=== PATIENT | male | born 1950 | race Caucasian/White ===

== ENCOUNTER 2020-03-01 20:21 | Inpatient (IN) | payer MEDICARE, OTHER ==
[~2020-03-01] VITALS: Ht 185.4 cm; Wt 102.0 kg
[2020-03-01] MEDS ORDERED: MORPHINE SULFATE 4 MG/ML SYR/VIAL IV ONE (20:30)
[2020-03-01] MEDS ORDERED: ONDANSETRON HCL 4 MG/2 ML VIAL IV ONE (20:30)
[2020-03-01] MEDS ORDERED: MORPHINE SULF INJ 2 MG/ML SYRINGE 1ML IV PRN (22:15)
[2020-03-01] MEDS ORDERED: DOCUSATE SOD 100 MG CAP PO PRN (22:15)
[2020-03-01] MEDS ORDERED: ONDANSETRON HCL 4 MG/2 ML VIAL IV PRN (22:15)
[2020-03-01] MEDS ORDERED: DEXTROSE (50%) 50ML SYRG IV PRN (22:15)
[2020-03-01] MEDS ORDERED: NITROGLYCERIN 0.4 MG SL TAB SL PRN (22:15)
[2020-03-01 23:07] LABS: Basophils # (auto) 0 10 ^3/uL (0-0.2); Basophils % (auto) 0.7 % (0.0-2.0); Eosinophils # (auto) 0.1 10 ^3/uL (0-0.8); Hemoglobin 13.4 g/dL (13.5-17.5); Lymphocytes # (auto) 1.1 10 ^3/uL (0.4-5.4); Lymphocytes % (auto) 16.3 % (10.0-50.0); Mean Corpuscular Hemoglobin 30.9 pg (28.0-32.0); Mean Corpuscular Hgb Conc. 33.4 g/dL (32.0-36.0); Mean Corpuscular Volume 92.5 fL (80.0-100.0); Monocytes # (auto) 0.5 10 ^3/uL (0-1.3); Monocytes % (auto) 7.6 % (0.0-12.0); Neutrophils # (auto) 4.9 10 ^3/uL (1.6-8.6); Neutrophils % (auto) 74.4 % (37.0-80.0); Nucleated Red Blood Cells % 0.1 %; Platelet Count (auto) 191 10^3/uL (140-450); Red Blood Cells 4.33 10^6/uL (4.5-5.90); Red Cell Distribution Width 13.5 % (11.8-14.3); White Blood Cell 6.6 10^3/uL (4.4-10.8)
[2020-03-01 23:18] LABS: Albumin 3.6 g/dL (3.4-5.0); BUN/Creatinine Ratio 19.7; Potassium 3.9 mmol/L (3.5-5.1)
[2020-03-01 23:20] LABS: INR 1.05 (0.9-1.15); Partial Thromboplastin Time 25.3 sec (23.64-32.05)
[2020-03-01] MEDS: SODIUM CHLORIDE 0.9% 1,000 ML IV SCH (23:20)
[2020-03-01] MEDS: HYDROcodone-ACET 5/325MG TAB PO PRN (23:20)
[2020-03-01 23:27] LABS: Bilirubin, Total 1.1 mg/dL (0.2-1.0); Total Protein 7.1 g/dL (6.4-8.2)
--- NOTE | 2020-03-01 23:58 | NUR ---
PATIENT ARRIVED TO FLOOR VIA FROM ER PATIENT PRESENTS WITH AGGRAVATED PARKINSON'S TREMORS. PATIENT PRESENTS WITHOUT IV. ER NURSE STATES IV WAS DISLODGED DURING TRANSFER. PATIENT REFUSES IV INSERTION AT THIS TIME; PATIENT STATES THAT HE NEEDS TIME TO RELAX TO EASE HIS TREMORS. PATIENT IS IN HIS CLOTHES AND REFUSES GOWN AT THIS TIME HE STATES THAT STIMULATION AGGRAVATES HIS TREMORS; PATIENT REQUESTS LIGHTS OFF, REFUSES VITAL SIGNS, REFUSES ASSESSMENT AND WANTS TO BE LEFT ALONE WITH LIGHTS OFF. PATIENT IS CLOSE TO NURSE'S STATION. BED IS LOCKED AT LOWEST POSITION WITH BED RAILS UP AND PADDED FOR SAFETY PRECAUTIONS. BED ALARM ON. WILL CONTINUE TO MONITOR Q1H AND PRN.
--- NOTE | 2020-03-02 00:30 | NUR ---
SPOKE WITH SON, DANIEL [phone] VITALY STATES THAT PATIENT EASILY GETS AGGRAVATED TREMORS WITH LITTLE STIMULATION AND THAT IT IS HIS BASELINE. DANIEL STATES THAT BEING ALONE IS WHAT HELPS HIM RELAX.
[2020-03-02] MEDS ORDERED: ASPI-231 PO (01:22)
[2020-03-02] MEDS ORDERED: CARB25TA22 PO (01:23)
--- NOTE | 2020-03-02 05:30 | NUR ---
IV insertion PATIENT AGREED TO OBTAIN IV ACCESS. IV access obtained via clean sterile technique by inserting 22 gauge catheter at LEFT FOREARM after 3] attempt(s)BY TWO DIFFERENT NURSES. IV secured properly. No trauma to site. ASSISTANCE REQUIRED TO HOLD PATIENT'S ARMS DUE TO TREMORS.
[2020-03-02] MEDS: MORPHINE SULFATE 4 MG/ML SYR/VIAL IV PRN ×3 (05:41→17:44)
[2020-03-02 05:43] VITALS: BP 151/102
[2020-03-02] MEDS: InsuLIN REG 1unit/0.01ml Soln (100units/ml) SC SCH ×4 (06:00→17:46)
[2020-03-02] MEDS: ACCU-CHEK COMFORT CURVE STRIP VI SCH ×4 (06:00→17:45)
[2020-03-02 06:01] LABS: Basophils # (auto) 0 10 ^3/uL (0-0.2); Basophils % (auto) 0.2 % (0.0-2.0); Eosinophils # (auto) 0 10 ^3/uL (0-0.8); Eosinophils % (auto) 0.1 % (0.0-7.0); Hematocrit 36.7 % (41.0-53.0); Hemoglobin 12.2 g/dL (13.5-17.5); Lymphocytes # (auto) 0.7 10 ^3/uL (0.4-5.4); Lymphocytes % (auto) 5.8 % (10.0-50.0); Mean Corpuscular Hemoglobin 30.3 pg (28.0-32.0); Mean Corpuscular Hgb Conc. 33.1 g/dL (32.0-36.0); Mean Corpuscular Volume 91.7 fL (80.0-100.0); Monocytes # (auto) 0.8 10 ^3/uL (0-1.3); Monocytes % (auto) 6.7 % (0.0-12.0); Neutrophils # (auto) 10.1 10 ^3/uL (1.6-8.6); Neutrophils % (auto) 87.2 % (37.0-80.0); Platelet Count (auto) 164 10^3/uL (140-450); Red Cell Distribution Width 13.4 % (11.8-14.3); White Blood Cell 11.6 10^3/uL (4.4-10.8)
[2020-03-02 06:18] LABS: BUN/Creatinine Ratio 25.4; Calcium 8.8 mg/dL (8.5-10.1); Potassium 4.3 mmol/L (3.5-5.1)
--- NOTE | 2020-03-02 06:39 | NUR ---
PATIENT AGREED TO COMPLETE BED LINEN CHANGE. REQUIRED ASSISTANCE OF TWO NURSE ASSISTANCE AND RN.
--- NOTE | 2020-03-02 06:41 | NUR ---
SKIN ASSESSMENT COMPLETED. NO OPEN WOUNDS. WOUND CONSULT PLACED FOR RIGHT HIP FRACTURE.
--- NOTE | 2020-03-02 07:04 | NUR ---
CLOSING NOTE- NOC SHIFT PATIENT IS IN BED, BED IS CLEAN AND LOCKED AT LOWEST POSITION. BED RAILS ARE UP AND PADDED FOR SAFETY PRECAUTIONS. PATIENT CONTINUES WITH TREMORS, RESTING FOR APPROX 5 MIN PERIODS WAS OBSERVED. PATIENT REFUSED MORNING ACCU CHECK STATING THAT HE DOES NOT USE INSULIN AT HOME. SERUM GLUCOSE LEVEL IS 218 PER MORNING LAB RESULTS. WILL ENDORSE PATIENT CARE TO DAY SHIFT NURSE.
--- NOTE | 2020-03-02 07:30 | NUR ---
Opening Note Received report from shift foreman RN. Patient is resting in bed, no signs or symptoms of distress noted at this time. Patient is on 3L NC, respirations even and unlabored. Bed in low and locked position, call light within reach. Will continue to monitor Q1 hour and PRN.
[2020-03-02 09:00] VITALS: BP 144/83
--- NOTE | 2020-03-02 11:17 | NUR ---
Pain Patient complains of pain to right hip 8/ and is requesting pain medications. Will medicate per orders. Will continue to monitor Q1 hour and PRN.
--- NOTE | 2020-03-02 12:06 | NUR ---
WOUND CARE NOTE: Wound care in to see patient per wound care request regarding per protocol for R hip Fracture, putting patient to high risk for skin breakdown. Patient is 69 years old male with admitted for R hip Pain. Patient is resting in bed in Rm. 278A. Patient is awake, alert and oriented. He need assistance in turning and repositioning. His Maikol score is 15. Patient is premedicated for pain by his bedside nurse prior skin assessment. Skin assessment done with assistance of patient's nurse, CAR Maldonado. No wound noted, no pressure injury noted. Alea care given and applied Barrier cream to sacral buttocks as preventative. Patient tolerated well and repositioned for comfort, redistributed pressure points with pillows. RECOMMENDATION: Nursing to continue with BID/PRN cleaning and application of Barrier cream to sacral, buttocks as preventative, frequent turning and repositioning schedule as condition permits, redistribute pressure points with pillows, continue monitoring by wound care while patient is hospitalized. Addendum: 03/02/20 at 1328 by Rachel Garcia RN Amended: Links added.
--- NOTE | 2020-03-02 12:10 | NUR ---
Wound care nurse at bedside Assessing patient with this RN. Will continue to monitor Q1 hour and PRN.
--- NOTE | 2020-03-02 12:14 | NUR ---
Refused insulin Patient blood glucose is 213, patient refused Insulin. Patient states he will not take it with out discussing with his PCP first. Patient educated and continues to refuse. Will continue to monitor Q1 hour and PRN.
[2020-03-02 13:00] VITALS: BP 137/73
[2020-03-02] MEDS ORDERED: hydrALAZINE HCL 20 MG/ML VL IV PRN (14:45)
--- NOTE | 2020-03-02 14:50 | NUR ---
Dr. Dominguez at station Discussing plan of care with this RN. Instructed this RN to keep patient NPO for possible surgery tonight. Will continue to monitor Q1 hour and PRN.
[2020-03-02] MEDS: SODIUM CHLORIDE 0.9% 1,000 ML IV SCH (14:57)
--- NOTE | 2020-03-02 16:04 | NUR ---
cytology technologist at bedside
--- NOTE | 2020-03-02 16:34 | NUR ---
Spoke to tamar Sierra . Update on plan of care
[2020-03-02 17:00] VITALS: BP 141/49
--- NOTE | 2020-03-02 17:18 | NUR ---
Dr. Martinez at bedside Discussing plan of care with patient and this RN. Patient to have surgery tomorrow morning. Patient verbalized understanding. Will continue to monitor Q1 hour and PRN.
--- NOTE | 2020-03-02 17:45 | NUR ---
Pain Patient states pain 10/10 to right hip. Will medicate per MD orders, Will continue to monitor Q1 hour and PRN.
--- NOTE | 2020-03-02 18:00 | NUR ---
Patient refused insulin Blood glucose 185, patient refused insulin at this time. Patient educated and continues to refuse. Will continue to monitor Q1 hour and PRN.
--- NOTE | 2020-03-02 18:10 | NUR ---
Lopez catheter insertion Patient assessed and determined to be in need of oley catheter for prolonged immobilization. Order obtained from MD. Patient educated on catheter and reason for insertion. All questions answered. Lopez catheter 16 guage Sinhala inserted with clean sterile technique. Catheter is patent and urine. Patient tolerated well. Will continue to monitor.
--- NOTE | 2020-03-02 18:15 | NUR ---
urine collected and sent to lab
[2020-03-02 18:58] LABS: Urine Bacteria NONE SEEN /hpf (None Seen); Urine Blood 2+ /uL (Negative); Urine Hyaline Cast FEW /lpf (0 - 2); Urine Mucus FEW (None Seen); Urine Specific Gravity 1.026 (1.001-1.035); Urine WBC 3 /hpf (0 - 3)
--- NOTE | 2020-03-02 19:05 | NUR ---
Closing Note Report given to night shift supervisor RN. No signs or symptoms of distress noted at this time.
--- NOTE | 2020-03-02 19:30 | NUR ---
Opening Shift Note Assumed care of patient, awake and alert. No S/S of distress/SOB or pain. Instructed on POC and to call for assist PRN. Bed in lowest locked position, call light within reach, side rails up x2, fall precautions in place. Will continue to monitor for changes Q1hr and PRN.
--- NOTE | 2020-03-02 20:30 | NUR ---
Spoke with OR nurse Received call from OR nurse Khan. Per nurse Khan, Dr. Martinez stated he would reschedule patient's surgery from Thursday to Thursday03/03/20 at 0930 AM. OR nurse stated MD also wanted a STAT covid 19 test done prior to surgery. Will update patient on POC and continue care. Addendum: 03/02/20 at 2227 by MONA ERIC OCA, RN Correction, surgery rescheduled to Thursday03/04/20 at 0930 AM.
[2020-03-02] MEDS: ACETAMINOPHEN 325 MG TAB PO PRN (21:35)
[2020-03-02 22:00] VITALS: BP 133/94
[2020-03-03] MEDS: ACCU-CHEK COMFORT CURVE STRIP VI SCH ×5 (00:08→23:47)
[2020-03-03] MEDS: InsuLIN REG 1unit/0.01ml Soln (100units/ml) SC SCH ×5 (00:08→23:50)
[2020-03-03 05:00] VITALS: BP 100/47
[2020-03-03] MEDS: MORPHINE SULFATE 4 MG/ML SYR/VIAL IV PRN (05:06)
[2020-03-03 05:29] LABS: Basophils # (auto) 0 10 ^3/uL (0-0.2); Basophils % (auto) 0.3 % (0.0-2.0); Eosinophils # (auto) 0 10 ^3/uL (0-0.8); Eosinophils % (auto) 0.1 % (0.0-7.0); Hematocrit 37.2 % (41.0-53.0); Hemoglobin 12.2 g/dL (13.5-17.5); Lymphocytes # (auto) 0.9 10 ^3/uL (0.4-5.4); Lymphocytes % (auto) 6.7 % (10.0-50.0); Mean Corpuscular Hemoglobin 29.9 pg (28.0-32.0); Mean Corpuscular Hgb Conc. 32.7 g/dL (32.0-36.0); Mean Corpuscular Volume 91.6 fL (80.0-100.0); Monocytes # (auto) 1.4 10 ^3/uL (0-1.3); Monocytes % (auto) 10.3 % (0.0-12.0); Neutrophils # (auto) 11.6 10 ^3/uL (1.6-8.6); Neutrophils % (auto) 82.6 % (37.0-80.0); Platelet Count (auto) 177 10^3/uL (140-450); Red Blood Cells 4.06 10^6/uL (4.5-5.90); Red Cell Distribution Width 13.7 % (11.8-14.3); White Blood Cell 14.1 10^3/uL (4.4-10.8)
[2020-03-03 05:36] LABS: Albumin 3.7 g/dL (3.4-5.0); BUN/Creatinine Ratio 31.9; Magnesium 2.3 mg/dL (1.6-2.6)
[2020-03-03 05:39] LABS: Bilirubin, Total 2.8 mg/dL (0.2-1.0); Total Protein 6.8 g/dL (6.4-8.2)
--- NOTE | 2020-03-03 07:30 | NUR ---
Opening Shift Note Assumed care of patient, awake and alert. No S/S of distress/SOB or pain. Instructed on POC and to call for assist PRN, will continue to monitor for changes Q1hr and PRN. Patient has pronounced tremors and shaking. Patient is able to states he is in the hospital. Will continue to monitor.
[2020-03-03] MEDS: SODIUM CHLORIDE 0.9% 1,000 ML IV SCH ×2 (07:39→23:58)
[2020-03-03 09:29] VITALS: BP 150/81
--- NOTE | 2020-03-03 09:30 | NUR ---
Dr. Martinez in to see patient for ortho follow up. Patient to have surgery in AM.
--- NOTE | 2020-03-03 11:45 | NUR ---
Dr. Brien Louis in to see patient as hospitalist. Dr. Louis informed the patient takes Sinemet at home but med is not ordered for hospital stay. Will continue to monitor.
--- NOTE | 2020-03-03 14:05 | NUR ---
Patient states the Sinemet documented on his med rec is not the dosage he takes.
--- NOTE | 2020-03-03 14:08 | NUR ---
Patient concerned he is not getting his Parkinson's medication. Patient does not know the dosage of his Sinemet. Spoke with patient's . She will call her son and get the dosage. Will follow up.
[2020-03-03 14:12] VITALS: BP 140/70
--- NOTE | 2020-03-03 14:55 | NUR ---
Followed up with patient's for Sinemet dosage. She was not able to contact her son. Will continue to monitor.
--- NOTE | 2020-03-03 15:04 | NUR ---
Dr. Brien Louis informed that patient's family is not able to provide Sinemet home dosage. New orders received.
[2020-03-03] MEDS ORDERED: CARBIDOPA W LEVODOPA 25/100mg TABLET PO ONE (15:15)
--- NOTE | 2020-03-03 15:29 | NUR ---
Patient refusing Sinemet. He states it is not the right dose. Explained to the patient that we are not able to get the dosage he takes at home. Patient states he "will take care of it tomorrow". Reminded the patient that he is in the hospital and he is to have hip surgery in AM. Patient states he will not have the surgery.
--- NOTE | 2020-03-03 16:05 | NUR ---
Patient requested to speak with his . He spoke with his on room phone. Patient appears to be having auditory hallucinations as he is telling her about "hateful speech" he is hearing and that people are coming to his house to "confiscate" his belongings. Patient states to his that he will try to get home and she needs to call "Jaylen". Patient is able to state that he is at [facility] but is not able to state why he is here. Patient continues to refuse his Sinemet.
--- NOTE | 2020-03-03 16:30 | NUR ---
Patient agreed to take his Sinemet. Will continue to monitor.
[2020-03-03] MEDS: MORPHINE SULF INJ 2 MG/ML SYRINGE 1ML IV PRN (16:57)
--- NOTE | 2020-03-03 17:00 | NUR ---
IV insertion IV access obtained, via clean sterile technique by inserting 22 gauge catheter at right forearm after 1 attempt. IV secured properly. No trauma to site. Patient tolerated procedure well. IV right inner arm removed with tip intact. Pressure dressing to site.
--- NOTE | 2020-03-03 17:05 | NUR ---
Patient requesting pain medication for pain 06/04. MS 2 mg IV given.
[2020-03-03 17:21] VITALS: BP 133/75
--- NOTE | 2020-03-03 17:35 | NUR ---
Patient having periods of confusion. Patient not able to give consent for hip surgery. Spoke with patient's , Kizzy aiden surgery. gave phone consent for surgery, witnessed by this RN and Ally Navas RN.
--- NOTE | 2020-03-03 19:10 | NUR ---
Call light activated. Found patient had pulled call light cord from wall. Patient care home out of the bed. Patient very angry, some confusion noted. Patient is able to state that he is at [facility]. Patient repositioned in bed. Bed alarm on. Report to NOC shift.
--- NOTE | 2020-03-03 19:10 | NUR ---
OPENING SHIFT NOTE: ASSUMED CARE OF PATIENT. PATIENT IS AWAKE, ALERT AND ORIENTED X 3, SOME CONFUSION NOTED. NO S/S OF SOB OR DISTRESS. CLAYTON HUNG BELOW BLADDER AND DRAINING TO GRAVITY. SAFETY MEASURES IN PLACE, BED ALARM ACTIVATED, TWO SIDE RAILS RAISED, BED IN LOWEST LOCKED POSITION AND CALL FELDER WITHIN REACH. INSTRUCTED ON POC AND ENCOURAGED PATIENT TO CALL FOR ASSISTANCE, PATIENT VERBALIZED UNDERSTANDING. WILL CONTINUE TO MONITOR Q1 HR AND PRN.
[2020-03-03 20:00] VITALS: BP 136/63
--- NOTE | 2020-03-03 20:05 | NUR ---
INCREASED CONFUSION NOTED. SITTER NOW AT THE BEDSIDE. BED ALARM ACTIVATED, BED IN LOWEST LOCKED POSITION WITH CALL FELDER WITHIN REACH. WILL CONTINUE TO MONITOR Q1 HR AND PRN.
[2020-03-03] MEDS: CARBIDOPA W LEVODOPA 25/100mg TABLET PO SCH (21:45)
[2020-03-03 21:54] VITALS: BP 136/63
--- NOTE | 2020-03-03 22:00 | NUR ---
TEMPERATURE 100.3, HR 100, COOLING MEASURES INITIATED AND HOSPITALIST PAGED.
--- NOTE | 2020-03-03 22:10 | NUR ---
returned call Hospitalist MD Malik Carver returned call, updated on patient status and reason for call, orders received to send UA and begin antibiotic therapy, see EMAR for details. Will carry out orders and continue to monitor for changes Q 1hr and prn.
[2020-03-03] MEDS ORDERED: cefTRIAXone 1GM/50ML D5W 50 ML IV SCH (22:15)
--- NOTE | 2020-03-03 22:15 | NUR ---
URINE COLLECTED AND SENT TO LAB.
[2020-03-03] MEDS: cefTRIAXone 1GM/50ML D5W 50 ML IV SCH (22:24)
--- NOTE | 2020-03-03 23:00 | NUR ---
TEMPERATURE REASSESSMENT: Temperature is 99.5 F , will continue to monitor
[2020-03-03 23:13] LABS: Urine Bacteria FEW /hpf (None Seen); Urine Blood 2+ /uL (Negative); Urine Hyaline Cast FEW /lpf (0 - 2); Urine Mucus FEW (None Seen); Urine Specific Gravity 1.025 (1.001-1.035); Urine WBC 29 /hpf (0 - 3)
--- NOTE | 2020-03-04 02:00 | NUR ---
PATIENT TEMPERATURE 100.2, COOLING MEASURES INITIATED, WILL CONTINUE TO MONITOR.
[2020-03-04] MEDS: HYDROcodone-ACET 5/325MG TAB PO PRN ×2 (02:19→22:37)
--- NOTE | 2020-03-04 02:20 | NUR ---
PATIENT STATES HE HAS PAIN 8 BUT REQUESTS NORCO INSTEAD OF MORPHINE FOR THE PAIN. WILL MEDICATE FOR PAIN.
--- NOTE | 2020-03-04 03:30 | NUR ---
PATIENT TEMP 100.6 F. COOLING MEASURES STILL IN PLACE AND TYLENOL ADMINISTERED. WILL CONTINUE TO MONITOR.
[2020-03-04] MEDS: ACETAMINOPHEN 325 MG TAB PO PRN (03:51)
[2020-03-04 04:49] VITALS: BP 137/79
[2020-03-04] MEDS: CARBIDOPA W LEVODOPA 25/100mg TABLET PO SCH ×4 (05:14→22:36)
[2020-03-04] MEDS: ACCU-CHEK COMFORT CURVE STRIP VI SCH ×3 (05:27→16:58)
[2020-03-04] MEDS: InsuLIN REG 1unit/0.01ml Soln (100units/ml) SC SCH ×3 (05:27→16:58)
--- NOTE | 2020-03-04 05:50 | NUR ---
Temp is 98.7 F, patient is resting comfortably, no s/s of sob or distress noted at this time. Sitter at the bedside and safety measures in place.
--- NOTE | 2020-03-04 07:00 | NUR ---
ATTEMPTED TO CALL O.R TO INFORM ABOUT TEMP, CARE ENDORSED TO DAY SHIFT RN,
--- NOTE | 2020-03-04 07:30 | NUR ---
Opening Shift Note Assumed care of patient, awake and alert. No S/S of distress/SOB or pain. Instructed on POC and to call for assist PRN, will continue to monitor for changes Q1hr and PRN. Patient having pronounced shaking and tremors. Opens eyes and responds to name but is not able to state where he is. Sitter at bedside. Patient NPO for surgery.
--- NOTE | 2020-03-04 07:42 | NUR ---
Spoke with Shana in PACU and informed of that patient had increased temp on NOC shift. Dr. Martinez informed. Will continue to monitor.
--- NOTE | 2020-03-04 08:52 | NUR ---
Urine collected and sent to lab for stat UA.
[2020-03-04 09:00] VITALS: BP 139/75
[2020-03-04 09:12] LABS: Urine Bacteria FEW /hpf (None Seen); Urine Blood 3+ /uL (Negative); Urine Mucus FEW (None Seen); Urine Specific Gravity 1.028 (1.001-1.035); Urine WBC 35 /hpf (0 - 3)
--- NOTE | 2020-03-04 09:30 | NUR ---
Per Shana in PACU, surgery postponed until 03/05. Patient's , evie Durand. Received phone consent from for anesthesia. Consent witnessed by this RN and Ally Navas RN. Will continue to monitor.
[2020-03-04] MEDS: MORPHINE SULF INJ 2 MG/ML SYRINGE 1ML IV PRN ×2 (11:01→18:15)
[2020-03-04 13:00] VITALS: BP 134/71
[2020-03-04] MEDS: SODIUM CHLORIDE 0.9% 1,000 ML IV SCH (16:59)
[2020-03-04 17:00] VITALS: BP 145/72
--- NOTE | 2020-03-04 19:20 | NUR ---
Opening Shift Note Assumed care of patient, awake and alert. No S/S of distress/SOB or pain. Instructed on POC and to call for assist PRN, will continue to monitor for changes Q1hr and PRN. PATIENT ANOX3 (PERSON, PLACE, AND SITUATION), BED IN LOWEST POSITION, SIDE RALES UPX2, CALL LIGHT AND PHONE WITHIN REACH, BED IN LOWEST POSITION.
[2020-03-04 20:20] VITALS: BP 124/47
[2020-03-04 21:10] VITALS: BP 124/47
[2020-03-04] MEDS: cefTRIAXone 1GM/50ML D5W 50 ML IV SCH (22:35)
[2020-03-05] VITALS (7 sets, daily range): BP systolic 116–167; BP diastolic 69–97
[2020-03-05] MEDS: ACCU-CHEK COMFORT CURVE STRIP VI SCH ×5 (00:12→23:37)
[2020-03-05] MEDS: InsuLIN REG 1unit/0.01ml Soln (100units/ml) SC SCH ×5 (00:14→23:37)
[2020-03-05] MEDS: MORPHINE SULF INJ 2 MG/ML SYRINGE 1ML IV PRN ×2 (03:19→11:21)
[2020-03-05] MEDS: HYDROcodone-ACET 5/325MG TAB PO PRN ×2 (05:00→22:30)
[2020-03-05] MEDS: CARBIDOPA W LEVODOPA 25/100mg TABLET PO SCH ×4 (06:01→21:31)
--- NOTE | 2020-03-05 07:32 | NUR ---
OPENING SHIFT NOTE Resumed care of patient from noc shift rn. Pt. asleep but easily aroused. Denies SOB, reports 8/10 pain. Plan of care discussed. Will continue to monitor Q1hr and PRN. Safety and contact precautions maintained. Bed is in lowest and locked position with and side rails up 2x. Call light and bedside table are within reach. Sitter at bedside.
[2020-03-05 09:14] LABS: Basophils # (auto) 0 10 ^3/uL (0-0.2); Basophils % (auto) 0.4 % (0.0-2.0); Eosinophils # (auto) 0.1 10 ^3/uL (0-0.8); Eosinophils % (auto) 1.6 % (0.0-7.0); Hematocrit 30.8 % (41.0-53.0); Hemoglobin 10.5 g/dL (13.5-17.5); Mean Corpuscular Hemoglobin 30.8 pg (28.0-32.0); Mean Corpuscular Hgb Conc. 34.2 g/dL (32.0-36.0); Monocytes # (auto) 0.9 10 ^3/uL (0-1.3); Monocytes % (auto) 10.1 % (0.0-12.0); Neutrophils # (auto) 6.6 10 ^3/uL (1.6-8.6); Neutrophils % (auto) 75.9 % (37.0-80.0); Nucleated Red Blood Cells % 0.1 %; Platelet Count (auto) 155 10^3/uL (140-450); Red Blood Cells 3.42 10^6/uL (4.5-5.90); Red Cell Distribution Width 13.3 % (11.8-14.3); White Blood Cell 8.7 10^3/uL (4.4-10.8)
[2020-03-05] MEDS: SODIUM CHLORIDE 0.9% 1,000 ML IV SCH (09:44)
--- NOTE | 2020-03-05 11:40 | NUR ---
Off unit for hip procedure with Dr. Martinez. Will resume meds upon arrival to unit.
[2020-03-05] MEDS ORDERED: ceFAZolin 1GM/50ML 50 ML IV ONE (11:48)
[2020-03-05] MEDS ORDERED: MIDAZOLAM HCL 1MG/1ML-2 ML VIAL ONE (12:08)
[2020-03-05] MEDS ORDERED: MEPERIDINE HCL (50 MG/ML) 1 ML VIAL ONE (12:08)
[2020-03-05] MEDS ORDERED: fentaNYL CITRATE 100 MCG/2 ML VL ONE (12:08)
[2020-03-05] MEDS ORDERED: ceFAZolin 1GM VL IV ONE (12:10)
--- NOTE | 2020-03-05 12:24 | NUR ---
Nutrition Assessment Notes please see attached link for complete assessment [employer] needs BW 97 [id number] kcals (23-25 kcal/kgBW), Est Protein needs: 97-106 gms/day (1.20-1.1 gm/kgBW). Will continue to monitor and reassess prn. Addendum: 03/05/20 at [address] Amended: Links added.
[2020-03-05] MEDS ORDERED: DexAMETHasone SOD PHOS 10MG/1ML VIAL INJ ONE (12:35)
[2020-03-05] MEDS ORDERED: diphenhdrAMINE HCL 50 MG/1 ML VL ONE (12:37)
[2020-03-05] MEDS ORDERED: MORPHINE SULFATE 4 MG/ML SYR/VIAL IV PRN (13:15)
[2020-03-05] MEDS ORDERED: ONDANSETRON HCL 4 MG/2 ML VIAL IV PRN (13:15)
[2020-03-05] MEDS ORDERED: ePHEDrine SULFATE 50 MG/ML AMP IV PRN (13:15)
[2020-03-05] MEDS ORDERED: LABETALOL HCL 5 MG/ML 4ML SYRINGE IV PRN (13:15)
[2020-03-05] MEDS ORDERED: HYDROmorphone HCL 2 MG/ML VL IV PRN (13:15)
[2020-03-05] MEDS ORDERED: MIDAZOLAM HCL 1MG/1ML-2 ML VIAL IV PRN (13:15)
[2020-03-05] MEDS ORDERED: ENOXAPARIN SOD 40 MG/0.4 ML SYRINGE SC ONE (16:00)
--- NOTE | 2020-03-05 16:12 | NUR ---
assessment Patient is a 69 year old male who is alert and oriented. Prior to admission patient lived home with family and functioned independently. Patient had a fall at [facility] in the parking lot and fractured his hip. Patients PCP is Dr Cervantes at the [facility]. Per patients she requested SNF at [facility]. Patient has agreed. Patient has a fww and a cane for home use. I informed patient he has a right to speak to a social and political studies professor regarding all care. I informed patient he has a right to participate in any and all discharge planning. Patient does not have a POA and advanced directive. I have offered patient information on POA and advanced directives. I informed the patient the advantages and benefits of having an Advanced Directive. Patient verbalized understanding and agreed to discharge plan. Addendum: 03/05/20 at 1615 by Romy EVANS Amended: Links added.
--- NOTE | 2020-03-05 18:50 | NUR ---
PATIENT REFUSED INSULIN DESPITE MULTIPLE ATTEMPTS AND EDUCATION ABOUT BLOOD SUGAR OF 253 REQUIRING 6 UNITS OF COVERAGE.
--- NOTE | 2020-03-05 19:30 | NUR ---
Opening Shift Note Assumed care of patient, awake and alert. No S/S of distress/SOB or pain. Patient dressing is clean dry and intact. Patient refusing for me to assess his skin to his back stating " i am comfortable i do not want to be move." educated patient on benefits and risk of reposition patient refused. Instructed on POC and to call for assist PRN, will continue to monitor for changes Q1hr and PRN. sitter at bedside. call light within reach and fall precautions in place and bed alarm on.
[2020-03-05] MEDS: ceFAZolin 1GM/50ML 50 ML IV SCH (21:30)
--- NOTE | 2020-03-05 22:30 | NUR ---
pain patient reports pain of 6/10 to right hip. patient medicated per protocol. patient positioned to comfort and SCD applied.
[2020-03-06] MEDS: SODIUM CHLORIDE 0.9% 1,000 ML IV SCH ×2 (02:14→17:52)
[2020-03-06] MEDS: HYDROcodone-ACET 5/325MG TAB PO PRN ×3 (02:56→21:19)
--- NOTE | 2020-03-06 02:57 | NUR ---
pain patient reports pain of 6/10 patient medicated per protocol
--- NOTE | 2020-03-06 04:11 | NUR ---
patient refused to be repositioned at this time. patient educated on benefits and risks patient refused. sitter at bedside. fall precautions in place. call light within reach and bed alarm on
[2020-03-06 04:46] VITALS: BP 133/74
[2020-03-06] MEDS: InsuLIN REG 1unit/0.01ml Soln (100units/ml) SC SCH ×4 (05:28→23:41)
[2020-03-06] MEDS: ceFAZolin 1GM/50ML 50 ML IV SCH ×2 (05:29→13:51)
[2020-03-06] MEDS: CARBIDOPA W LEVODOPA 25/100mg TABLET PO SCH ×4 (05:29→21:19)
[2020-03-06] MEDS: ACCU-CHEK COMFORT CURVE STRIP VI SCH ×4 (05:29→23:41)
[2020-03-06 05:56] LABS: Urine Amorphous Crystal FEW /hpf (None Seen); Urine Bacteria FEW /hpf (None Seen); Urine Blood 2+ /uL (Negative); Urine Mucus FEW (None Seen); Urine Specific Gravity 1.032 (1.001-1.035); Urine WBC 10 /hpf (0 - 3)
--- NOTE | 2020-03-06 06:41 | NUR ---
patient rounds patient is in bed watching tv. denies sob distress or pain. sitter at bedside fall precautions in place. bed alarm on. call light within reach. bed in low position. dressing is clean dry and intact
[2020-03-06 06:54] LABS: Basophils # (auto) 0 10 ^3/uL (0-0.2); Basophils % (auto) 0.1 % (0.0-2.0); Eosinophils # (auto) 0 10 ^3/uL (0-0.8); Hematocrit 27.9 % (41.0-53.0); Hemoglobin 9.6 g/dL (13.5-17.5); Lymphocytes # (auto) 0.7 10 ^3/uL (0.4-5.4); Lymphocytes % (auto) 5.7 % (10.0-50.0); Mean Corpuscular Hgb Conc. 34.4 g/dL (32.0-36.0); Mean Corpuscular Volume 90.1 fL (80.0-100.0); Monocytes # (auto) 0.8 10 ^3/uL (0-1.3); Monocytes % (auto) 6.8 % (0.0-12.0); Neutrophils # (auto) 10.5 10 ^3/uL (1.6-8.6); Neutrophils % (auto) 87.4 % (37.0-80.0); Platelet Count (auto) 194 10^3/uL (140-450); Red Cell Distribution Width 12.8 % (11.8-14.3)
[2020-03-06 07:03] LABS: Potassium 3.8 mmol/L (3.5-5.1)
[2020-03-06 07:11] LABS: Albumin 2.6 g/dL (3.4-5.0); BUN/Creatinine Ratio 38.4; Bilirubin, Total 1.3 mg/dL (0.2-1.0); Calcium 8.7 mg/dL (8.5-10.1); Magnesium 2.4 mg/dL (1.6-2.6); Total Protein 6.1 g/dL (6.4-8.2)
--- NOTE | 2020-03-06 07:20 | NUR ---
REPORT GIVEN TO CHELA RN. PATIENT DENIES SOB DISTRESS OR PAIN SITTER AT BEDISDE. FALL PRECAUTIONS IN PLACE
--- NOTE | 2020-03-06 07:30 | NUR ---
Opening Shift Note Assumed care of patient, awake,alert very disoriented,supervisor safety deposit at bedside for assistance and for safety.. No S/S of distress/SOB. Instructed on POC and nursing routines,call light within reach patient instructed reminded to call for assistance,will continue to monitor for changes Q1hr and PRN
[2020-03-06 09:00] VITALS: BP 114/58
[2020-03-06 13:00] VITALS: BP 114/58
--- NOTE | 2020-03-06 13:00 | NUR ---
Instructed sitter to keep patient NPO for Ultrasound of Liver
--- NOTE | 2020-03-06 13:30 | NUR ---
PHYSICAL THERAPY AT BEDSIDE,ASSISTED PATIENT TO GET OOB/UP IN CHAIR
--- NOTE | 2020-03-06 14:30 | NUR ---
BACK TO BED ASSISTED BY DialyTOLERATED ACTIVITY
--- NOTE | 2020-03-06 15:40 | NUR ---
C/O RIGHT HIP PAIN,MEDICATED WITH NORCO 5/325 MG PO SEE eMAR FOR DETAIL
[2020-03-06 17:00] VITALS: BP 134/52
--- NOTE | 2020-03-06 17:00 | NUR ---
PATIENT APPEARS MORE CONFUSED AND SHAKY
--- NOTE | 2020-03-06 19:17 | NUR ---
REPORT GIVEN TO INCOMING NOC SHIFT RN,NO DISTRESS NO DISCOMFORT.
--- NOTE | 2020-03-06 19:22 | NUR ---
Opening Shift Note Assumed care of patient, awake and alert. No S/S of distress/SOB or pain. Patient dressing is clean dry and intact. patient has bruising to right thigh/hip. Patient reposition to comfort. sitter at bedside and informed sitter patient is to be npo for ultrasound.. Instructed patient on POC and to remain npo for ultrasound procedure and to call for assist PRN, will continue to monitor for changes Q1hr and PRN. bed in low position and call light within reach. fall precautions in place.
--- NOTE | 2020-03-06 20:49 | NUR ---
ULTRASOUND AT BEDSIDE
--- NOTE | 2020-03-06 21:19 | NUR ---
PATIENT REPORTING 6/10 PAIN. PATIENT MEDICATED PER MD ORDERS.
--- NOTE | 2020-03-06 21:35 | NUR ---
PATIENT REFUSING ACCUCHECK ASSESSMENT PATIENT EDUCATED ON BENEFITS AND RISK. PATIENT REFUSED YELLING "LEAVE ME ALONE" COMFORT MEASURES PROVIDED TO PATIENT. SITTER AT BEDSIDE FALL PRECAUTIONS IN PLACE.
--- NOTE | 2020-03-06 21:35 | NUR ---
PATIENT HAVING PERIOD OF CONFUSING AND AGITATED AND YELLING " YOU DO NOT CARE ABOUT ME" "WHERE IS THE WHEEL CART". COMFORT MEASURES PROVIDED TO PATIENT. PATIENT WAS NPO DUE TO ULTRASOUND PROCEDURE. ATTEMPTED TO ASSES PATIENT BS PATIENT REFUSED.
[2020-03-06 22:00] VITALS: BP 126/97
--- NOTE | 2020-03-06 22:19 | NUR ---
PATIENT IS CALM. SITTER IS FEEDING PATIENT DINNER. PATIENT TOLERATING FOOD WELL.
--- NOTE | 2020-03-06 22:19 | NUR ---
PAIN REASSESSMENT PATIENT REPORTS 0/10 PAIN
--- NOTE | 2020-03-06 23:33 | NUR ---
WAS CALLED TO ROOM BY SITTER. PER SITTER PATIENT REMOVED IV. UPON ENTERING ROOM IV IS REMOVED CATHETER FULLY INTACT. PRESSURE AND DRESSING APPLIED TO PATIENT.HAND/WRIST. PATIENT TOLERATED WELL. PATIENT REORIENTATED AND EDUCATED ON NOT PULLING ON IV. PATIENT VERBALIZED UNDERSTANDING. INFORMED PATIENT IF HE WOULD ALLOW ME TO START A NEW IV PER PATIENT " NO I AM TOO TIRED! LET ME SLEEP" " YOU CAN TRY IN THE MORNING." EDUCATED PATIENT ON RISKS AND BENEFITS PATIENT REFUSED IV AT THIS TIME. SITTER AT BEDSIDE. CALL LIGHT WITHIN REACH. BED ALARM ON FALL PRECAUTIONS IN PLACE.
--- NOTE | 2020-03-06 23:41 | NUR ---
PATIENT ALLOWED ACCUCHECK TO BE DONE BS 249. PATIENT REFUSING MEDICATION INSULIN. PATIENT EDUCATED ON RISKS AND BENEFITS PATIENT VERBALIZED REFUSAL. SITTER AT BEDSIDE CALL LIGHT WITHIN REACH. FALL PRECAUTIONS IN PLACE.
--- NOTE | 2020-03-07 00:51 | NUR ---
INFORMED METALSMITH APPRENTICE GILBERT PATIENT IS CONFUSED AND REMOVED HIS IV AND IS REFUSING PLACEMENT OF AN IV AT THIS TIME. NO NEW ORDERS RECEIVED. ORDERS READ BACK AND VERIFIED BY METALSMITH APPRENTICE.
[2020-03-07] MEDS: HYDROcodone-ACET 5/325MG TAB PO PRN ×2 (04:16→15:20)
--- NOTE | 2020-03-07 04:19 | NUR ---
patient medicated for 6/10 pain to right hip.
--- NOTE | 2020-03-07 04:30 | NUR ---
Patient linen change done. Optifoam place to patient sacrum as preventative. skin to sacrum and back is intact and blanchable. patient position to comfort. call light within reach bed in low position. sitter at bedside fall precautions in place.
[2020-03-07 04:40] VITALS: BP 144/62
--- NOTE | 2020-03-07 05:16 | NUR ---
pain reassessment 0/10 pain
[2020-03-07] MEDS: CARBIDOPA W LEVODOPA 25/100mg TABLET PO SCH ×4 (05:31→23:31)
[2020-03-07] MEDS: ACCU-CHEK COMFORT CURVE STRIP VI SCH ×3 (05:31→17:50)
[2020-03-07] MEDS: InsuLIN REG 1unit/0.01ml Soln (100units/ml) SC SCH ×3 (05:31→17:50)
[2020-03-07 05:43] LABS: Basophils # (auto) 0 10 ^3/uL (0-0.2); Basophils % (auto) 0.3 % (0.0-2.0); Eosinophils # (auto) 0.1 10 ^3/uL (0-0.8); Eosinophils % (auto) 2.1 % (0.0-7.0); Hematocrit 25.8 % (41.0-53.0); Hemoglobin 8.9 g/dL (13.5-17.5); Lymphocytes % (auto) 15.3 % (10.0-50.0); Mean Corpuscular Hemoglobin 30.7 pg (28.0-32.0); Mean Corpuscular Hgb Conc. 34.6 g/dL (32.0-36.0); Mean Corpuscular Volume 88.7 fL (80.0-100.0); Monocytes # (auto) 0.7 10 ^3/uL (0-1.3); Monocytes % (auto) 11.3 % (0.0-12.0); Neutrophils # (auto) 4.6 10 ^3/uL (1.6-8.6); Platelet Count (auto) 208 10^3/uL (140-450); Red Blood Cells 2.91 10^6/uL (4.5-5.90); Red Cell Distribution Width 13.1 % (11.8-14.3); White Blood Cell 6.5 10^3/uL (4.4-10.8)
[2020-03-07 06:06] LABS: Potassium 3.2 mmol/L (3.5-5.1)
[2020-03-07 06:11] LABS: Albumin 2.5 g/dL (3.4-5.0); BUN/Creatinine Ratio 38.6; Bilirubin, Total 1.5 mg/dL (0.2-1.0); Calcium 8.2 mg/dL (8.5-10.1); Total Protein 5.6 g/dL (6.4-8.2)
--- NOTE | 2020-03-07 07:15 | NUR ---
report given to dayshift rn patient denies sob distress or pain fall precautions in place. sitter at bedside call light within reach. dressing is clean dry and intact. informed rn patient refused iv placement.
--- NOTE | 2020-03-07 08:00 | NUR ---
Received patient w/o IV. Patient is refusing IV at the moment . Will continue to monitor.
[2020-03-07] MEDS: cefTRIAXone 1GM/50ML D5W 50 ML IV SCH (10:00)
[2020-03-07] MEDS: SODIUM CHLORIDE 0.9% 1,000 ML IV SCH ×2 (11:34→13:45)
[2020-03-07] MEDS ORDERED: ENOXAPARIN SOD 40 MG/0.4 ML SYRINGE SC ONE (13:45)
[2020-03-07] MEDS ORDERED: FAMOTIDINE 20 MG TAB PO ONE (13:45)
[2020-03-07] MEDS ORDERED: LISINOPRIL 10 MG TAB PO ONE (13:45)
--- NOTE | 2020-03-07 16:56 | NUR ---
D/C Planning Per SS consult for SNF placement for physical therapy. faxed clinical information to [facility] as requested by family. Per Ingrid with [facility] [phone] patient has been accepted and room number will be assign upon d/c day. Notify , Dr. Dominguez. Per Provider patient will d/c on 03/09/2020.
--- NOTE | 2020-03-07 18:00 | NUR ---
IV insertion IV access obtained, via clean sterile technique by inserting 22 gauge catheter at right fa after 1 attempt. IV secured properly. No trauma to site. Patient tolerated well.
--- NOTE | 2020-03-07 18:05 | NUR ---
Patient c/o right hip and generalized pain, rates it 05/04. Will medicate per MD orders.
[2020-03-07] MEDS: HYDROmorphone HCL 2 MG/ML VL IV PRN ×2 (18:20→20:13)
--- NOTE | 2020-03-07 19:09 | NUR ---
Closing note Patient is comfortably resting in bed. No s/s of distress/sob noted. Bed at lowest locked position and call light within reach. Care endorsed to Otto YOON. Sitter at bedside for safety.
--- NOTE | 2020-03-07 20:00 | NUR ---
OPEN NOTE assumed care of pt, upon entering room pt is awake and alert to self. pt has sitter at bedside. pt on 2L nc no respiratory distress noted or expressed. pt is trembling, having hx of parkinsons. rails are padded. pt has cardona in place, secured, below the waist and draining lilian urine. pt has dressing to right hip clean dy intact. pt reports pain in right hip, this nurse to medicate per MD and MAR order. bed locked, low and 2x rails up and padded. pt call light in reach. this nurse encouraged pt and sitter to call as needed. this nurse to round q1hr and prn.
[2020-03-07 22:00] VITALS: BP 119/69
[2020-03-08] MEDS: ACCU-CHEK COMFORT CURVE STRIP VI SCH ×4 (00:24→17:40)
[2020-03-08] MEDS: InsuLIN REG 1unit/0.01ml Soln (100units/ml) SC SCH ×4 (00:31→17:40)
[2020-03-08] MEDS: HYDROmorphone HCL 2 MG/ML VL IV PRN ×3 (01:01→09:00)
[2020-03-08 05:00] VITALS: BP 100/71
[2020-03-08 06:01] LABS: Albumin 2.5 g/dL (3.4-5.0); Calcium 8.8 mg/dL (8.5-10.1); Potassium 4.6 mmol/L (3.5-5.1)
[2020-03-08 06:05] LABS: BUN/Creatinine Ratio 35.1; Bilirubin, Total 1.5 mg/dL (0.2-1.0); Total Protein 5.9 g/dL (6.4-8.2)
[2020-03-08 06:06] LABS: Basophils # (auto) 0 10 ^3/uL (0-0.2); Basophils % (auto) 0.5 % (0.0-2.0); Eosinophils # (auto) 0.2 10 ^3/uL (0-0.8); Eosinophils % (auto) 1.9 % (0.0-7.0); Hematocrit 26.9 % (41.0-53.0); Hemoglobin 9.4 g/dL (13.5-17.5); Lymphocytes # (auto) 0.9 10 ^3/uL (0.4-5.4); Lymphocytes % (auto) 10.8 % (10.0-50.0); Mean Corpuscular Hemoglobin 32.4 pg (28.0-32.0); Mean Corpuscular Hgb Conc. 34.8 g/dL (32.0-36.0); Monocytes # (auto) 0.8 10 ^3/uL (0-1.3); Monocytes % (auto) 9.1 % (0.0-12.0); Neutrophils # (auto) 6.6 10 ^3/uL (1.6-8.6); Neutrophils % (auto) 77.7 % (37.0-80.0); Platelet Count (auto) 227 10^3/uL (140-450); Red Blood Cells 2.89 10^6/uL (4.5-5.90); Red Cell Distribution Width 12.8 % (11.8-14.3); White Blood Cell 8.5 10^3/uL (4.4-10.8)
[2020-03-08] MEDS: CARBIDOPA W LEVODOPA 25/100mg TABLET PO SCH ×3 (06:15→17:21)
--- NOTE | 2020-03-08 08:00 | NUR ---
Morning note Patient resting in bed with even and unlabored respirations, no distress noted. Patient is A&Ox3 (name, , place, president and situation). Patient is suspicious of patient in bed B. Patient stated "I know Nixon is up to no good. I'm watching him." Patient is intently watching patient in bed B and yells at the other patient if the patient moves. Patient reoriented to surroundings. Instructed patient on POC, fall precautions, pressure injury prevention and to call for assistance as needed. Patient verbalized understanding. Fall precautions in place with call light within reach.
[2020-03-08 09:00] VITALS: BP 120/61
[2020-03-08] MEDS: cefTRIAXone 1GM/50ML D5W 50 ML IV SCH (09:00)
[2020-03-08] MEDS: SODIUM CHLORIDE 0.9% 1,000 ML IV SCH (09:45)
[2020-03-08] MEDS ORDERED: FAMOTIDINE 20 MG TAB PO SCH (10:00)
[2020-03-08] MEDS ORDERED: LISINOPRIL 10 MG TAB PO SCH (10:00)
[2020-03-08] MEDS ORDERED: ENOXAPARIN SOD 40 MG/0.4 ML SYRINGE SC SCH (10:00)
--- NOTE | 2020-03-08 11:16 | NUR ---
RE: physical therapy Patient sat at side of bed for five minutes with moderate-maximum assistance from physical security manager.
--- NOTE | 2020-03-08 11:26 | NUR ---
RE: Home medications Spoke with patient's son, Rigo, RE: home medications. Rigo stated "He was taking something for the diabetes but he stopped taking it awhile ago. I don't know if it was the doctor that stopped it or my dad but either way, he hasn't been taking it. He only takes the Parkinson's medicine."
[2020-03-08] MEDS ORDERED: LISI-646 PO (11:56)
[2020-03-08] MEDS ORDERED: LEVO500T21 PO (11:56)
[2020-03-08] MEDS ORDERED: METF-370 PO (11:56)
[2020-03-08] MEDS ORDERED: levoFLOXacin 500 MG TAB PO ONE (12:00)
[2020-03-08 13:00] VITALS: BP 112/60
--- NOTE | 2020-03-08 14:17 | NUR ---
D/C planning Per Ingrid with [facility] [phone] patient has been accepted to room 106 bed 2 accepting MD, Dr. Blanco. Transportation has been arranged with [facility] [phone] via [employer] with a 17:45 burr picker time. Informed CAR Henderson.
[2020-03-08] MEDS ORDERED: MAGNESIUM CITRATE SOLUTION 300 ML BTL PO ONE (14:45)
--- NOTE | 2020-03-08 15:41 | NUR ---
Nutrition Followup Notes Wt: 102 kg Pt was asleep when rounding this morning. Pt has DC plan per RN to [facility]. Est Energy needs BW 97 [id number] kcals (23-25 kcal/kgBW), Est Protein needs: 97-106 gms/day (1.1-1.2 gm/kgBW). Will continue to monitor and reassess prn. LABS: BUN 33H, Gluc 225H, Tbili 1.5H, Alb 2.5L GI: Pt has no BM reported per RN doc BS: 15 mod risk, hip incision, full WC detail in RN doc PES: Altered nutrition related lab values r/t current chronic medical condition aeb elev BUN hyperglcyemia Comments 1)resume diet as medically feasible 2) refer to CDE on DC 3) consider mVI/C bid 4) continue current plan of care Expected Outcomes/Goals: pt to consume >75% po pt will have improved labs F/u mod 3-5 days
--- NOTE | 2020-03-08 15:57 | NUR ---
Updated patient's son on POC Updated patient's son, Rigo, on POC and discharge/transfer plan. Rigo verbalized understanding.
--- NOTE | 2020-03-08 16:51 | NUR ---
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 Informed CAR Henderson.
[2020-03-08 17:00] VITALS: BP 107/57
--- NOTE | 2020-03-08 17:32 | NUR ---
Order received for DVT prophylaxis from Dr. Dominguez Telephone order received and read back to verify. Order written on transfer medication order sheet.
[2020-03-08] MEDS ORDERED: metFORMIN HYDROCHLORIDE 500 MG TAB PO SCH (18:00)
--- NOTE | 2020-03-08 18:46 | NUR ---
Called [facility] and gave report to nurse at [facility]. 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
--- NOTE | 2020-03-08 18:55 | NUR ---
Gave patient discharge instructions and packet, patient verbalized instructions. Patient stated he could not sign the paperwork due to parkinsons.
--- NOTE | 2020-03-08 19:00 | NUR ---
Report given to oncoming nurse Rodri, patient resting in bed comfortably, no s/s of distress noted, fall precautions in place.
--- NOTE | 2020-03-08 19:35 | NUR ---
iv discontinued. [facility] pt has cardona in place per MD order. no distress at time of discharge.
[2020-03-09] MEDS ORDERED: levoFLOXacin 500 MG TAB PO SCH (10:00)
== END 2020-03-08 19:30 | DRG 853 ==
LOC: EDBD 20:21 → ER 20:26 → WEST WING 20:27
PROVIDERS: ADMIT Hospitalist; ATTEND Internal Medicine
PROC: 0QS634Z Reposition Right Upper Femur with Internal Fixation Device, Percutaneous Approach (ICD-10-PCS; principal; 2020-03-05 11:59)
DX: A41.9 Sepsis, unspecified organism (principal); S72.141A Displaced intertrochanteric fracture of right femur, initial encounter for closed fracture; N39.0 Urinary tract infection, site not specified; G20 Parkinson's disease; I10 Essential (primary) hypertension; E66.9 Obesity, unspecified; E11.9 Type 2 diabetes mellitus without complications; W18.30XA Fall on same level, unspecified, initial encounter; I70.90 Unspecified atherosclerosis; Z11.59 Encounter for screening for other viral diseases; Z85.828 Personal history of other malignant neoplasm of skin; Z79.899 Other long term (current) drug therapy; Z79.82 Long term (current) use of aspirin; Z79.4 Long term (current) use of insulin; Z68.28 Body mass index [BMI] 28.0-28.9, adult
CPT/HCPCS: 36415; 71045; 73110; 73502; 73700; 76000; 76705; 80048; 80053; 80061; 81001; 82962; 83036; 83735; 84443; 85025; 85610; 85730; 86850; 86900; 86901; 87040; 87086; 93005; 93306; 96374; 96375; 97110; 97163; A4565; C1713; C1769; G0378; J0690; J0696; J1100; J1815; J2250; J2405; J7042

== ENCOUNTER 2020-03-20 15:36 | Inpatient (IN) | payer MEDICARE, OTHER ==
[~2020-03-20] VITALS: Ht 185.4 cm; Wt 85.6 kg
[2020-03-20] VITALS (8 sets, daily range): BP systolic 83–113; BP diastolic 39–68
[~2020-03-20 15:36] MED LIST: ASPI-231 PO; CARB25TA22 PO; LEVO500T21 PO; LISI-646 PO; METF-370 PO
[2020-03-20] MEDS ORDERED: SODIUM CHLORIDE 0.9% 1,000 ML IV ONE ×3 (15:44→17:45)
[2020-03-20 16:17] LABS: Basophils # (auto) 0.1 10 ^3/uL (0-0.2); Basophils % (auto) 1.1 % (0.0-2.0); Eosinophils # (auto) 0.2 10 ^3/uL (0-0.8); Eosinophils % (auto) 2.5 % (0.0-7.0); Hematocrit 28.7 % (41.0-53.0); Hemoglobin 9.8 g/dL (13.5-17.5); Lymphocytes # (auto) 1.4 10 ^3/uL (0.4-5.4); Lymphocytes % (auto) 17.7 % (10.0-50.0); Mean Corpuscular Hemoglobin 30.9 pg (28.0-32.0); Mean Corpuscular Hgb Conc. 34.3 g/dL (32.0-36.0); Mean Corpuscular Volume 90.1 fL (80.0-100.0); Monocytes # (auto) 0.7 10 ^3/uL (0-1.3); Monocytes % (auto) 9.3 % (0.0-12.0); Neutrophils # (auto) 5.3 10 ^3/uL (1.6-8.6); Neutrophils % (auto) 69.4 % (37.0-80.0); Nucleated Red Blood Cells % 0.1 %; Platelet Count (auto) 417 10^3/uL (140-450); Red Blood Cells 3.18 10^6/uL (4.5-5.90); Red Cell Distribution Width 13.2 % (11.8-14.3); White Blood Cell 7.6 10^3/uL (4.4-10.8)
[2020-03-20 16:30] LABS: Albumin 2.9 g/dL (3.4-5.0); Anion Gap 6 (5-15); BUN/Creatinine Ratio 40.9; Blood Urea Nitrogen 47 mg/dL (7-18); Calcium 8.6 mg/dL (8.5-10.1); Carbon Dioxide 25 mmol/L (21-32); Chloride 102 mmol/L (98-107); GFR African American 81 mL/min; GFR Non-African American 67 mL/min; Glucose 151 mg/dL (74-106); Magnesium 2.6 mg/dL (1.6-2.6); Potassium 4.1 mmol/L (3.5-5.1); Sodium 133 mmol/L (136-145)
[2020-03-20 16:40] LABS: Alanine Aminotransferase 10 U/L (16-61); Alkaline Phosphatase 177 U/L (45-117); Aspartate Aminotransferase 17 U/L (15-37); Bilirubin, Total 1.3 mg/dL (0.2-1.0); Total Protein 6.1 g/dL (6.4-8.2)
[2020-03-20] MEDS: NOREPINEPHRINE 8 MG/250ML KIT 250 ML IV SCH (16:56)
[2020-03-20] MEDS ORDERED: CARBIDOPA W LEVODOPA 25/100mg TABLET PO ONE (17:45)
[2020-03-20] MEDS ORDERED: NITROGLYCERIN 0.4 MG SL TAB SL PRN (19:30)
[2020-03-20] MEDS ORDERED: DEXTROSE (50%) 50ML SYRG IV PRN (19:30)
[2020-03-20] MEDS: ENOXAPARIN SOD 40 MG/0.4 ML SYRINGE SC SCH (20:30)
[2020-03-20 20:58] LABS: Urine Bacteria NONE SEEN /hpf (None Seen); Urine Blood TRACE /uL (Negative); Urine Mucus FEW (None Seen); Urine Specific Gravity 1.021 (1.001-1.035); Urine WBC 2 /hpf (0 - 3)
[2020-03-20] MEDS: ACCU-CHEK COMFORT CURVE STRIP VI SCH (22:00)
[2020-03-20] MEDS: InsuLIN REG 1unit/0.01ml Soln (100units/ml) SC SCH (22:00)
[2020-03-20] MEDS: MORPHINE SULF INJ 2 MG/ML SYRINGE 1ML IV PRN (23:00)
[2020-03-21] VITALS (64 sets, daily range): BP systolic 80–172; BP diastolic 34–102
[2020-03-21] MEDS: CARBIDOPA W LEVODOPA 25/100mg TABLET PO SCH ×5 (03:06→17:48)
[2020-03-21 04:33] LABS: Basophils # (auto) 0.1 10 ^3/uL (0-0.2); Basophils % (auto) 1.3 % (0.0-2.0); Eosinophils # (auto) 0.2 10 ^3/uL (0-0.8); Eosinophils % (auto) 2.6 % (0.0-7.0); Hematocrit 29.1 % (41.0-53.0); Hemoglobin 9.9 g/dL (13.5-17.5); Lymphocytes # (auto) 1.6 10 ^3/uL (0.4-5.4); Lymphocytes % (auto) 19.7 % (10.0-50.0); Mean Corpuscular Hemoglobin 30.8 pg (28.0-32.0); Mean Corpuscular Hgb Conc. 34.2 g/dL (32.0-36.0); Mean Corpuscular Volume 90.1 fL (80.0-100.0); Monocytes # (auto) 0.8 10 ^3/uL (0-1.3); Monocytes % (auto) 9.9 % (0.0-12.0); Neutrophils # (auto) 5.3 10 ^3/uL (1.6-8.6); Neutrophils % (auto) 66.5 % (37.0-80.0); Platelet Count (auto) 404 10^3/uL (140-450); Red Blood Cells 3.23 10^6/uL (4.5-5.90)
[2020-03-21] MEDS: MORPHINE SULF INJ 2 MG/ML SYRINGE 1ML IV PRN (04:48)
[2020-03-21 04:50] LABS: Albumin 2.8 g/dL (3.4-5.0); Calcium 8.4 mg/dL (8.5-10.1); Potassium 4.1 mmol/L (3.5-5.1)
[2020-03-21 04:54] LABS: BUN/Creatinine Ratio 37.1; Bilirubin, Total 1.2 mg/dL (0.2-1.0)
[2020-03-21] MEDS: ACCU-CHEK COMFORT CURVE STRIP VI SCH ×4 (06:54→21:30)
[2020-03-21] MEDS: InsuLIN REG 1unit/0.01ml Soln (100units/ml) SC SCH ×4 (06:54→21:30)
[2020-03-21] MEDS: cefTRIAXone 1GM/50ML D5W 50 ML IV SCH (08:52)
[2020-03-21] MEDS: NOREPINEPHRINE 8 MG/250ML KIT 250 ML IV SCH (08:52)
[2020-03-21] MEDS: ENOXAPARIN SOD 40 MG/0.4 ML SYRINGE SC SCH ×2 (10:00→13:43)
[2020-03-21] MEDS: ASPirin-EC 81 mg tab PO SCH (10:04)
[2020-03-21 11:56] LABS: Folate (Folic Acid) 16.49 ng/mL (5.38-24)
[2020-03-21] MEDS ORDERED: HYDROcodone-ACET 5/325MG TAB PO ONE (16:45)
[2020-03-21] MEDS ORDERED: HYDROcodone-ACET 5/325MG TAB ONE (16:46)
[2020-03-21] MEDS ORDERED: CARB25TA22 PO (16:54)
[2020-03-21] MEDS ORDERED: LISI-646 PO (16:54)
[2020-03-21] MEDS: TAMSULOSIN HYDROCHLORIDE 0.4 MG CAP PO SCH (17:48)
[2020-03-21] MEDS: HYDROcodone-ACET 7.5/325MG TAB PO PRN (21:30)
[2020-03-21] MEDS: CARBIDOPA W LEVODOPA 25/250mg TABLET PO SCH (21:30)
[2020-03-21] MEDS: TEMAZEPAM 15 MG CAP PO PRN (22:00)
[2020-03-22] VITALS (13 sets, daily range): BP systolic 102–135; BP diastolic 51–67
[2020-03-22] MEDS ORDERED: diphenhdrAMINE HCL 25 MG CAP PO ONE ×2 (02:24→02:30)
[2020-03-22] MEDS: HYDROcodone-ACET 7.5/325MG TAB PO PRN ×4 (03:15→22:23)
[2020-03-22] MEDS: CARBIDOPA W LEVODOPA 25/250mg TABLET PO SCH ×4 (05:59→22:03)
[2020-03-22] MEDS: InsuLIN REG 1unit/0.01ml Soln (100units/ml) SC SCH ×4 (05:59→22:03)
[2020-03-22] MEDS: ACCU-CHEK COMFORT CURVE STRIP VI SCH ×4 (05:59→22:04)
[2020-03-22 08:55] LABS: Calcium 8.8 mg/dL (8.5-10.1); Potassium 3.9 mmol/L (3.5-5.1)
[2020-03-22 08:58] LABS: BUN/Creatinine Ratio 35.1
[2020-03-22] MEDS: cefTRIAXone 1GM/50ML D5W 50 ML IV SCH (09:15)
[2020-03-22] MEDS: ASPirin-EC 81 mg tab PO SCH (09:43)
[2020-03-22] MEDS ORDERED: FUROSEMIDE 40 MG/4 ML VIAL IV ONE (10:00)
[2020-03-22 10:13] LABS: Basophils # (auto) 0.1 10 ^3/uL (0-0.2); Basophils % (auto) 2.3 % (0.0-2.0); Eosinophils # (auto) 0.3 10 ^3/uL (0-0.8); Eosinophils % (auto) 4.9 % (0.0-7.0); Hematocrit 27.4 % (41.0-53.0); Hemoglobin 9.3 g/dL (13.5-17.5); Lymphocytes # (auto) 0.8 10 ^3/uL (0.4-5.4); Lymphocytes % (auto) 14.8 % (10.0-50.0); Mean Corpuscular Hemoglobin 31.7 pg (28.0-32.0); Mean Corpuscular Hgb Conc. 33.9 g/dL (32.0-36.0); Mean Corpuscular Volume 93.5 fL (80.0-100.0); Monocytes # (auto) 0.5 10 ^3/uL (0-1.3); Monocytes % (auto) 8.8 % (0.0-12.0); Neutrophils # (auto) 3.9 10 ^3/uL (1.6-8.6); Neutrophils % (auto) 69.2 % (37.0-80.0); Platelet Count (auto) 331 10^3/uL (140-450); Red Blood Cells 2.93 10^6/uL (4.5-5.90); Red Cell Distribution Width 13.1 % (11.8-14.3); White Blood Cell 5.7 10^3/uL (4.4-10.8)
[2020-03-22 10:27] LABS: INR 1.14 (0.9-1.15); Partial Thromboplastin Time 32.8 sec (23.64-32.05)
[2020-03-22] MEDS: TAMSULOSIN HYDROCHLORIDE 0.4 MG CAP PO SCH (18:05)
[2020-03-22] MEDS: MUPIROCIN 2% OINT 15gm or 22gm EACHNOSTRI SCH (22:22)
[2020-03-23 05:00] VITALS: BP 98/57
[2020-03-23] MEDS: CARBIDOPA W LEVODOPA 25/250mg TABLET PO SCH ×4 (05:14→22:54)
[2020-03-23] MEDS: HYDROcodone-ACET 7.5/325MG TAB PO PRN (05:15)
[2020-03-23] MEDS: InsuLIN REG 1unit/0.01ml Soln (100units/ml) SC SCH ×4 (06:44→22:55)
[2020-03-23] MEDS: ACCU-CHEK COMFORT CURVE STRIP VI SCH ×4 (06:45→22:55)
[2020-03-23] MEDS ORDERED: FUROSEMIDE 40 MG/4 ML VIAL IV ONE (08:15)
[2020-03-23 09:00] VITALS: BP 110/62
[2020-03-23] MEDS: ENOXAPARIN SOD 40 MG/0.4 ML SYRINGE SC SCH (09:19)
[2020-03-23] MEDS: cefTRIAXone 1GM/50ML D5W 50 ML IV SCH (09:20)
[2020-03-23] MEDS: MUPIROCIN 2% OINT 15gm or 22gm EACHNOSTRI SCH ×2 (09:32→22:53)
[2020-03-23 13:00] VITALS: BP 92/54
[2020-03-23 17:00] VITALS: BP 103/55
[2020-03-23] MEDS: TAMSULOSIN HYDROCHLORIDE 0.4 MG CAP PO SCH (17:44)
[2020-03-23 22:00] VITALS: BP 110/71
[2020-03-24] MEDS: HYDROcodone-ACET 7.5/325MG TAB PO PRN (02:43)
[2020-03-24 04:36] VITALS: BP 109/57
[2020-03-24] MEDS: CARBIDOPA W LEVODOPA 25/250mg TABLET PO SCH ×4 (06:30→22:56)
[2020-03-24] MEDS: InsuLIN REG 1unit/0.01ml Soln (100units/ml) SC SCH ×4 (06:32→23:07)
[2020-03-24] MEDS: ACCU-CHEK COMFORT CURVE STRIP VI SCH ×4 (06:32→22:56)
[2020-03-24] MEDS: cefTRIAXone 1GM/50ML D5W 50 ML IV SCH (09:14)
[2020-03-24] MEDS: MUPIROCIN 2% OINT 15gm or 22gm EACHNOSTRI SCH ×3 (09:15→22:56)
[2020-03-24] MEDS: ENOXAPARIN SOD 40 MG/0.4 ML SYRINGE SC SCH (09:15)
[2020-03-24 09:25] VITALS: BP 109/60
[2020-03-24 11:44] LABS: Basophils # (auto) 0.1 10 ^3/uL (0-0.2); Basophils % (auto) 1.2 % (0.0-2.0); Eosinophils # (auto) 0.3 10 ^3/uL (0-0.8); Eosinophils % (auto) 4.5 % (0.0-7.0); Hemoglobin 11.1 g/dL (13.5-17.5); Lymphocytes # (auto) 1.9 10 ^3/uL (0.4-5.4); Lymphocytes % (auto) 27.3 % (10.0-50.0); Mean Corpuscular Hemoglobin 29.8 pg (28.0-32.0); Mean Corpuscular Hgb Conc. 33.5 g/dL (32.0-36.0); Mean Corpuscular Volume 88.9 fL (80.0-100.0); Monocytes # (auto) 0.5 10 ^3/uL (0-1.3); Monocytes % (auto) 7.5 % (0.0-12.0); Neutrophils # (auto) 4.2 10 ^3/uL (1.6-8.6); Neutrophils % (auto) 59.5 % (37.0-80.0); Nucleated Red Blood Cells % 0.1 %; Platelet Count (auto) 379 10^3/uL (140-450); Red Blood Cells 3.71 10^6/uL (4.5-5.90); Red Cell Distribution Width 13.2 % (11.8-14.3); White Blood Cell 7.1 10^3/uL (4.4-10.8)
[2020-03-24 11:58] LABS: BUN/Creatinine Ratio 20.4; Calcium 9.3 mg/dL (8.5-10.1)
[2020-03-24 13:00] VITALS: BP 91/53
[2020-03-24 16:47] VITALS: BP 124/62
[2020-03-24] MEDS: TAMSULOSIN HYDROCHLORIDE 0.4 MG CAP PO SCH (17:07)
[2020-03-24 22:00] VITALS: BP 99/57
[2020-03-25] MEDS: HYDROcodone-ACET 7.5/325MG TAB PO PRN (03:57)
[2020-03-25 05:00] VITALS: BP 117/63
[2020-03-25] MEDS: CARBIDOPA W LEVODOPA 25/250mg TABLET PO SCH ×4 (05:18→21:22)
[2020-03-25] MEDS: ACCU-CHEK COMFORT CURVE STRIP VI SCH ×4 (06:23→21:23)
[2020-03-25] MEDS: InsuLIN REG 1unit/0.01ml Soln (100units/ml) SC SCH ×4 (06:23→21:26)
[2020-03-25 08:48] VITALS: BP 112/51
[2020-03-25] MEDS: MUPIROCIN 2% OINT 15gm or 22gm EACHNOSTRI SCH ×2 (09:05→21:22)
[2020-03-25] MEDS: ENOXAPARIN SOD 40 MG/0.4 ML SYRINGE SC SCH ×2 (09:05→10:00)
[2020-03-25] MEDS: cefTRIAXone 1GM/50ML D5W 50 ML IV SCH (09:05)
[2020-03-25 13:00] VITALS: BP 107/64
[2020-03-25 17:00] VITALS: BP 120/73
[2020-03-25] MEDS: TAMSULOSIN HYDROCHLORIDE 0.4 MG CAP PO SCH (17:23)
[2020-03-25] MEDS: TEMAZEPAM 15 MG CAP PO PRN (21:17)
[2020-03-25 22:00] VITALS: BP 102/64
[2020-03-26] MEDS: HYDROcodone-ACET 7.5/325MG TAB PO PRN ×3 (02:58→17:11)
[2020-03-26 05:00] VITALS: BP 110/64
[2020-03-26] MEDS: CARBIDOPA W LEVODOPA 25/250mg TABLET PO SCH ×3 (05:27→22:13)
[2020-03-26] MEDS: ACCU-CHEK COMFORT CURVE STRIP VI SCH ×4 (05:28→22:17)
[2020-03-26] MEDS: InsuLIN REG 1unit/0.01ml Soln (100units/ml) SC SCH ×4 (05:28→22:00)
[2020-03-26] MEDS ORDERED: ceFAZolin 1GM/50ML 50 ML IV ONE (07:29)
[2020-03-26] MEDS ORDERED: IOHEXOL 300 MG/ML 100ML BOTTLE IJ ONE (07:30)
[2020-03-26] MEDS ORDERED: LIDOCAINE 1% HCL (LOCAL ANESTH.) INJ 20ML MDV ONE (07:40)
[2020-03-26] MEDS ORDERED: SUCCINYLCHOLINE CHLORIDE 20 MG/ML 10ML VIAL IV ONE (07:40)
[2020-03-26] MEDS ORDERED: MIDAZOLAM HCL 1MG/1ML-2 ML VIAL ONE (07:45)
[2020-03-26] MEDS ORDERED: ROCURONIUM 10MG/ML 10ML VIAL IV ONE (07:50)
[2020-03-26] MEDS ORDERED: ETOMIDATE (2MG/ML) 20ML VIAL IV ONE (07:50)
[2020-03-26] MEDS ORDERED: SODIUM CHLORIDE LOCK 10 ML ONE (08:04)
[2020-03-26] MEDS ORDERED: ePHEDrine SULFATE 50 MG/ML AMP ONE (08:04)
[2020-03-26] MEDS ORDERED: NALOXONE HCL 0.4 MG/ML VIAL IV PRN (08:30)
[2020-03-26] MEDS ORDERED: ACCU-CHEK COMFORT CURVE STRIP VI ONE (08:30)
[2020-03-26 09:00] VITALS: BP 138/68
[2020-03-26] MEDS ORDERED: HYDROmorphone HCL 2 MG/ML VL ONE (09:20)
[2020-03-26] MEDS: HYDROmorphone HCL 2 MG/ML VL IV PRN ×2 (09:24→09:36)
[2020-03-26] MEDS: MUPIROCIN 2% OINT 15gm or 22gm EACHNOSTRI SCH ×2 (10:00→22:17)
[2020-03-26] MEDS ORDERED: SODIUM CHLORIDE 0.9% 1,000 ML IV ONE (10:45)
[2020-03-26] MEDS: cefTRIAXone 1GM/50ML D5W 50 ML IV SCH (11:25)
[2020-03-26] MEDS ORDERED: LACTULOSE 20Gm/30ML SOLN PO ONE (12:00)
[2020-03-26 13:00] VITALS: BP 136/70
[2020-03-26] MEDS ORDERED: CARBIDOPA W LEVODOPA 25/250mg TABLET PO SCH (16:15)
[2020-03-26 17:00] VITALS: BP 109/48
[2020-03-26] MEDS: TAMSULOSIN HYDROCHLORIDE 0.4 MG CAP PO SCH (17:11)
[2020-03-26 22:00] VITALS: BP 100/56
[2020-03-26] MEDS: TEMAZEPAM 15 MG CAP PO PRN (22:53)
[2020-03-27 05:00] VITALS: BP 118/42
[2020-03-27] MEDS: ACCU-CHEK COMFORT CURVE STRIP VI SCH ×4 (06:17→21:44)
[2020-03-27] MEDS: CARBIDOPA W LEVODOPA 25/250mg TABLET PO SCH ×5 (06:18→21:45)
[2020-03-27] MEDS: InsuLIN REG 1unit/0.01ml Soln (100units/ml) SC SCH ×4 (06:18→21:44)
[2020-03-27 09:00] VITALS: BP 109/52
[2020-03-27] MEDS ORDERED: cefTRIAXone 1GM/50ML D5W 50 ML IV SCH (09:00)
[2020-03-27] MEDS: MUPIROCIN 2% OINT 15gm or 22gm EACHNOSTRI SCH ×2 (10:57→21:45)
[2020-03-27] MEDS ORDERED: DOCUSATE SOD 100 MG CAP PO ONE (11:45)
[2020-03-27 13:00] VITALS: BP 111/64
[2020-03-27 17:00] VITALS: BP 125/75
[2020-03-27] MEDS: TAMSULOSIN HYDROCHLORIDE 0.4 MG CAP PO SCH (18:49)
[2020-03-27] MEDS: DOCUSATE SOD 100 MG CAP PO SCH (21:45)
[2020-03-27 22:00] VITALS: BP 106/53
[2020-03-28 05:00] VITALS: BP 120/65
[2020-03-28] MEDS: CARBIDOPA W LEVODOPA 25/250mg TABLET PO SCH ×4 (06:22→18:12)
[2020-03-28] MEDS: InsuLIN REG 1unit/0.01ml Soln (100units/ml) SC SCH ×3 (06:23→16:34)
[2020-03-28] MEDS: ACCU-CHEK COMFORT CURVE STRIP VI SCH ×3 (06:23→16:33)
[2020-03-28 08:00] VITALS: BP 109/60
[2020-03-28] MEDS ORDERED: TAM04C PO (09:55)
[2020-03-28] MEDS ORDERED: ENOXAPARIN SOD 40 MG/0.4 ML SYRINGE SC SCH (10:00)
[2020-03-28] MEDS: DOCUSATE SOD 100 MG CAP PO SCH (10:45)
[2020-03-28] MEDS: MUPIROCIN 2% OINT 15gm or 22gm EACHNOSTRI SCH (10:45)
[2020-03-28 12:00] VITALS: BP 129/58
[2020-03-28 14:51] VITALS: BP 129/58
[2020-03-28 16:56] VITALS: BP 102/53
[2020-03-28] MEDS: TAMSULOSIN HYDROCHLORIDE 0.4 MG CAP PO SCH (18:12)
== END 2020-03-28 19:00 | DRG 853 ==
LOC: ER 15:36 → EDBD 15:36 → TELE 15:37 → ICU WEST 21:42 → TELE-CENTR 03-22 11:09
PROVIDERS: ADMIT Nurse Practitioner Acute Care; ATTEND Internal Medicine
PROC: 0TF4XZZ Fragmentation in Left Kidney Pelvis, External Approach (ICD-10-PCS; 2020-03-26)
PROC: BT1F1ZZ Fluoroscopy of Left Kidney, Ureter and Bladder using Low Osmolar Contrast (ICD-10-PCS; 2020-03-26)
PROC: 0T778DZ Dilation of Left Ureter with Intraluminal Device, Via Natural or Artificial Opening Endoscopic (ICD-10-PCS; principal; 2020-03-26 07:41)
DX: R57.1 Hypovolemic shock (principal); N17.0 Acute kidney failure with tubular necrosis; N13.2 Hydronephrosis with renal and ureteral calculous obstruction; E44.0 Moderate protein-calorie malnutrition; I95.9 Hypotension, unspecified; D64.9 Anemia, unspecified; G20 Parkinson's disease; I10 Essential (primary) hypertension; E11.9 Type 2 diabetes mellitus without complications; N13.9 Obstructive and reflux uropathy, unspecified; N21.0 Calculus in bladder; Z96.641 Presence of right artificial hip joint; N40.0 Benign prostatic hyperplasia without lower urinary tract symptoms; R26.9 Unspecified abnormalities of gait and mobility; Z79.899 Other long term (current) drug therapy; Z79.84 Long term (current) use of oral hypoglycemic drugs; Z79.82 Long term (current) use of aspirin; Z22.322 Carrier or suspected carrier of Methicillin resistant Staphylococcus aureus; Z85.828 Personal history of other malignant neoplasm of skin
CPT/HCPCS: 36415; 71045; 74176; 76881; 78707; 80048; 80053; 81001; 82607; 82746; 82962; 83605; 83735; 84484; 85025; 85379; 85610; 85652; 85730; 86141; 87040; 87081; 87086; 92610; 93005; 96361; 96365; 96366; 96372; 97110; 97163; 97530; G0378; J0330; J0690; J0696; J1815; J2001; J2250